=== PATIENT | female | born 1990 | race Caucasian/White ===

== ENCOUNTER 2018-06-08 20:40 | Emergency (ER) | payer MEDICARE, MEDICAID ==
[2018-06-08 20:41] VITALS: BMI 28.3
[2018-06-08] MEDS ORDERED: Sodium Chloride 0.9% 1,000 ML IV ONE (20:57)
[2018-06-08 21:18] LABS: BASO # 0.1 K/uL (0.0-0.2); BASO % 0.7 % (0.0-2.0); EOS % 0.2 % (0.0-4.0); HEMOGLOBIN 13.1 g/dL (11.0-16.0); LYMPH # 2.5 K/uL (1.0-4.3); LYMPH % 22.3 % (20.0-40.0); MEAN CORPUSCULAR HEMOGLOBIN 26.6 pg (27.0-31.0); MEAN PLATELET VOLUME 10.1 fL (7.2-11.7); MONO # 0.8 K/uL (0.0-0.8); MONO % 7.4 % (0.0-10.0); NEUT # 7.9 K/uL (1.8-7.0); NEUT % 69.4 % (50.0-75.0); RBC 4.92 Mil/uL (3.80-5.20); RED CELL DISTRIBUTION WIDTH 15.4 % (11.5-14.5); WHITE BLOOD COUNT 11.3 K/uL (4.8-10.8)
[2018-06-08] MEDS ORDERED: Sodium Chloride 0.9% 1,000 ML ONE (21:21)
[2018-06-08 21:29] LABS: MEAN CELL VOLUME 80.7 fL (81.0-99.0)
[2018-06-08 21:31] LABS: ALB/GLOB RATIO 1.2 (1.0-2.1); ALBUMIN 4.6 g/dL (3.5-5.0); ALT/SGPT 31 U/L (9-52); AST/SGOT 39 U/L (14-36); BLOOD UREA NITROGEN 14 mg/dL (7-17); CALCIUM 10.4 mg/dl (8.6-10.4); GFR NON-AFRICAN AMERICAN > 60
--- NOTE | 2018-06-08 21:47 | C.PDOC ---
History Of Present Illness 28 y/o female presents to the ED with complaints of a headache, bilateral ear pain, chills, bodyaches, and dizziness since Tuesday. Associated with nausea and vomiting, patient reports being unable to keep anything down. Also states she feels weak. Otherwise patient denies any chest pain, productive cough, congestion, SOB, changes in bowel movements, or other associated symptoms. Time Seen by Provider: 06/08/18 20:45 Chief Complaint (Nursing): Flu-like Symptoms History Per: Patient History/Exam Limitations: no limitations Onset/Duration Of Symptoms: Days (x6) Current Symptoms Are (Timing): Still Present Location Of Pain: Ear(s), Diffuse Myalgias, Headache Associated Symptoms: Chills, Nausea, Vomiting Ear Symptoms: Bilateral: Ear Pain Past Medical History Reviewed: Historical Data, Nursing Documentation, Vital Signs Vital Signs: Last Vital Signs Temp 97.6 F 06/08/18 21:03 Pulse 117 H 06/08/18 21:03 Resp 20 06/08/18 21:03 BP 119/71 06/08/18 21:03 Pulse Ox 100 06/08/18 21:03 - Medical History PMH: Anemia, Bipolar Disorder, Depression, Migraine, Post Traumatic Stress Disorder Denies: Diabetes, Hepatitis, HIV, HTN, Chronic Kidney Disease, Seizures, Sexually Transmitted Disease - [facility] Procedures GROUP PSYCHOTHERAPY (03/24/18) INDIVID PSYCHOTHERAP NEC (04/12/15) INDIVIDUAL PSYCHOTHERAPY, COGNITIVE-BEHAVIORAL (03/24/18) OTHER GROUP THERAPY (04/12/15) Family History: States: Unknown Family Hx - Social History Hx Tobacco Use: No Hx Alcohol Use: No Hx Substance Use: No - Immunization History Hx Tetanus Toxoid Vaccination: No Hx Influenza Vaccination: No Hx Pneumococcal Vaccination: No Review Of Systems Constitutional: Positive for: Chills, Weakness (generalized), Other (Bodyaches) ENT: Positive for: Ear Pain (bilateral). Negative for: Nose Discharge, Nose Congestion Cardiovascular: Negative for: Chest Pain, Light Headedness Respiratory: Negative for: Cough, Shortness of Breath, Sputum, Wheezing Gastrointestinal: Positive for: Nausea, Vomiting. Negative for: Diarrhea, Hematochezia, Hematemesis Neurological: Positive for: Headache, Dizziness Physical Exam - Physical Exam Appears: Non-toxic, No Acute Distress Skin: Normal Color, Warm, Diaphoretic (mildly) Head: Atraumatic, Normacephalic Eye(s): bilateral: Normal Inspection, PERRL, EOMI Ear(s): Left: TM Erythema (Left TM is bulging and erythematous), Right: Normal Nose: Normal, No Discharge Oral Mucosa: Moist Throat: Normal, No Erythema Neck: Normal ROM, Supple Chest: Symmetrical Cardiovascular: Rhythm Regular (but tachycardic), No Murmur Respiratory: Normal Breath Sounds, No Rales, No Rhonchi, No Wheezing Gastrointestinal/Abdominal: Bowel Sounds (normal), Soft, No Tenderness, No Distention, No Guarding Extremity: Bilateral: Atraumatic, No Pedal Edema, Normal Color And Temperature Neurological/Psych: Oriented x3, Normal Speech, Normal Cranial Nerves, Other (Appears tremulous) ED Course And Treatment - Laboratory Results Result Diagrams: 06/08/18 21:15 06/08/18 21:15 O2 Sat by Pulse Oximetry: 100 (RA) Pulse Ox Interpretation: Normal Medical Decision Making Medical Decision Making: Impression: Flu-like symptoms Plan: --CBC --CMP --Flu swab --UA --IV fluids --Toradol 30 mg IVP --Zofran 4 mg IVP Labs reviewed, flu negative. All diagnostics discussed with patient. Patient vomited x1 despite receiving zofran. Reglan 10mg ivp given. On re-eval, patient appears much more comfortable. No longer has rigors. Reports that she feels better. Will discharge with Rx for antiemetics as well as amoxicillin for L otitis media. Disposition - Disposition Disposition: HOME/ ROUTINE Disposition Time: 23:45 Condition: GOOD Additional Instructions: RASHID BECKER, thank you for letting us take care of you today. Your provider was Cherry Gu MD and you were treated for FLU LIKE SYMPTOMS. The emergency medical care you received today was directed at your acute symptoms. If you were prescribed any medication, please fill it and take as directed. It may take several days for your symptoms to resolve. Return to the Emergency Department if your symptoms worsen, do not improve, or if you have any other problems. Please contact your doctor or call one of the physicians/clinics you have been referred to that are listed on the Patient Visit Information form that is included in your discharge packet. Bring any paperwork you were given at discharge with you along with any medications you are taking to your follow up visit. Our treatment cannot replace ongoing medical care by a primary care provider outside of the emergency department. Thank you for allowing the [facility] team to be part of your care today. If you had an X-Ray or CT scan: A Radiologist will review the ED reading if any change in treatment is needed we will contact you. If you had a blood, urine, or wound culture: It will take several days for the results, if any change in treatment is needed we will contact you. If you had an STI test: It will take 48 hours for the results. Please call after 1 week if you have not heard back. Prescriptions: RX: Amoxicillin 500 mg PO BID #20 tablet Ondansetron [Zofran] 4 mg PO Q8H PRN #9 tab PRN Reason: Nausea/Vomiting Instructions: Ear Infections (Otitis Media) (DC), Nausea and Vomiting, Adult (DC) Forms: [facility] (N[place]ien) - Clinical Impression Clinical Impression: Influenza-like illness, Otitis media - Scribe Statement The provider has reviewed the documentation as recorded by the Scribe (Luana Dunbar) Provider Attestation: All medical record entries made by the Scribe were at my direction and personally dictated by me. I have reviewed the chart and agree that the record accurately reflects my personal performance of the history, physical exam, medical decision making, and the department course for this patient. I have also personally directed, reviewed, and agree with the discharge instructions and disposition.
[2018-06-08 23:45] VITALS: O2SAT 100
[2018-06-09 00:01] VITALS: BP 118/77; PULSE 89; RESP 18; TEMP 98.3
== END 2018-06-09 | disposition home or self-care (01) ==
LOC: C.ER 20:40
DX: J11.1 Influenza due to unidentified influenza virus with other respiratory manifestations (principal); H66.92 Otitis media, unspecified, left ear
CPT/HCPCS: 80053; 85025; 87804; 96361; 96374; 96375; 99284; J1885; J2405; J2765; J7030